=== PATIENT | female | born 1995 ===

== ENCOUNTER → 2023-04-18 | Outpatient (CLI) | payer MEDICAID ==
[2023-04-18 11:47] LABS: Basophils # (auto) 0 10 ^3/uL (0-0.2); Basophils % (auto) 0.2 % (0.0-2.0); Eosinophils # (auto) 0 10 ^3/uL (0-0.8); Eosinophils % (auto) 0.5 % (0.0-7.0); Hematocrit 39.5 % (36.0-46.0); Hemoglobin 12.9 g/dL (12.2-16.2); Lymphocytes # (auto) 1.3 10 ^3/uL (0.4-5.4); Lymphocytes % (auto) 15.7 % (10.0-50.0); Mean Corpuscular Hemoglobin 29.9 pg (28.0-32.0); Mean Corpuscular Hgb Conc. 32.7 g/dL (32.0-36.0); Mean Corpuscular Volume 91.4 fL (80.0-100.0); Monocytes # (auto) 0.5 10 ^3/uL (0-1.3); Monocytes % (auto) 6.2 % (0.0-12.0); Neutrophils # (auto) 6.5 10 ^3/uL (1.6-8.6); Neutrophils % (auto) 77.4 % (37.0-80.0); Red Blood Cells 4.32 10^6/uL (4.0-5.20); Red Cell Distribution Width 14.4 % (11.8-14.3); White Blood Cell 8.4 10^3/uL (4.4-10.8)
[2023-04-18 12:37] LABS: Alanine Aminotransferase 21 U/L (7-40); Alkaline Phosphatase 117 U/L (46-116); Anion Gap 9 (5-15); BUN/Creatinine Ratio 15.4 (10.0-20.0); Blood Urea Nitrogen 8 mg/dL (9-23); Calcium 9.5 mg/dL (8.5-10.1); Carbon Dioxide 24 mmol/L (20-30); Chloride 105 mmol/L (98-107); Glucose 91 mg/dL (74-106); Potassium 3.9 mmol/L (3.5-5.1); Sodium 138 mmol/L (136-145)
[2023-04-18 12:39] LABS: Aspartate Aminotransferase 19 U/L (13-40); Bilirubin, Total 0.3 mg/dL (0.2-1.0); Total Protein 7.1 g/dL (5.7-8.2)
== END | disposition home or self-care (01) ==
LOC: LAB 10:57
PROVIDERS: ATTEND Obstetrics & Gynecology
DX: Z34.80 Encounter for supervision of other normal pregnancy, unspecified trimester (principal); Z3A.00 Weeks of gestation of pregnancy not specified
CPT/HCPCS: 36415; 80053; 85025; 86592

== ENCOUNTER 2023-06-07 14:26 | Inpatient (IN) | payer MEDICAID ==
[~2023-06-07] VITALS: Ht 160 cm; Wt 78.0 kg
[2023-06-07] MEDS ORDERED: LIDOCAINE 2%HCL (LOCAL ANESTH.) INJ 20ML MDV IJ PRN (16:00)
[2023-06-07] MEDS ORDERED: BUTORPHANOL TARTRATE 2 MG/1 ML VIAL IV PRN ×2 (16:00)
[2023-06-07] MEDS: DERMOPLAST 60ML BOTTLE TOP PRN (16:29)
[2023-06-07] MEDS: WITCH HAZEL-GLYCERIN PAD TOP PRN (16:29)
[2023-06-07] MEDS: PHISODERM TOP SOLN 240ML BTL TOP PRN (16:29)
[2023-06-07 16:44] LABS: Basophils # (auto) 0 10 ^3/uL (0-0.2); Basophils % (auto) 0.4 % (0.0-2.0); Eosinophils # (auto) 0.1 10 ^3/uL (0-0.8); Eosinophils % (auto) 0.6 % (0.0-7.0); Hematocrit 40.1 % (36.0-46.0); Hemoglobin 13.4 g/dL (12.2-16.2); Lymphocytes # (auto) 1.8 10 ^3/uL (0.4-5.4); Lymphocytes % (auto) 19.8 % (10.0-50.0); Mean Corpuscular Hemoglobin 30.5 pg (28.0-32.0); Mean Corpuscular Hgb Conc. 33.4 g/dL (32.0-36.0); Mean Corpuscular Volume 91.3 fL (80.0-100.0); Monocytes # (auto) 0.7 10 ^3/uL (0-1.3); Neutrophils # (auto) 6.6 10 ^3/uL (1.6-8.6); Neutrophils % (auto) 71.2 % (37.0-80.0); Nucleated Red Blood Cells % 0.1 %; Red Blood Cells 4.39 10^6/uL (4.0-5.20); Red Cell Distribution Width 15.4 % (11.8-14.3); White Blood Cell 9.3 10^3/uL (4.4-10.8)
[2023-06-07 17:06] LABS: INR 0.9 (0.9-1.15); Partial Thromboplastin Time 25.3 SEC (24.5-34.5); Prothrombin Time 9.5 sec (9.3-11.8)
[2023-06-07 17:08] LABS: Urine Bacteria NONE SEEN /hpf (None Seen); Urine Blood 2+ /uL (Negative); Urine Clarity Clear (Clear); Urine Color Colorless (Yellow); Urine Protein, UAD Negative (Negative); Urine Urobilinogen Normal (Negative); Urine WBC 6 /hpf (0 - 5); Urine pH 5.5 (5.0-8.0)
[2023-06-07 17:11] LABS: Albumin 3.7 g/dL (3.2-4.8); Alkaline Phosphatase 161 U/L (46-116); Anion Gap 6 (5-15); Aspartate Aminotransferase 14 U/L (13-40); BUN/Creatinine Ratio 15.1 (10.0-20.0); Bilirubin, Total 0.3 mg/dL (0.2-1.0); Blood Urea Nitrogen 8 mg/dL (9-23); Carbon Dioxide 23 mmol/L (20-30); Chloride 108 mmol/L (98-107); Glucose 76 mg/dL (74-106); Potassium 4.1 mmol/L (3.5-5.1); Sodium 137 mmol/L (136-145); Total Protein 6.5 g/dL (5.7-8.2)
[2023-06-07 17:19] LABS: Alanine Aminotransferase 9 U/L (7-40)
[2023-06-07 17:30] LABS: Amphetamine Screen, Urine Neg (NEGATIVE); Barbiturate Scree,Urine Neg (NEGATIVE); Benzodiazephine Screen, Urine Neg (NEGATIVE)
[2023-06-07 17:31] LABS: Cannabinoid Screen, Urine Neg (NEGATIVE); Cocaine Screen, Urine Neg (NEGATIVE); Opiate Scree,Urine Neg (NEGATIVE); Phencyclidine Screen, Urine Neg (NEGATIVE)
[2023-06-07] MEDS ORDERED: miSOPROStol 50 MCG per PRE-CUT 1/2 TAB PO PRN (17:45)
[2023-06-07] MEDS: LACTATED RINGER'S 1,000 ML IV SCH (18:00)
[2023-06-07] MEDS ORDERED: LACT. RINGERS/OXYTOCIN 20UNITS 1,000 ML IV SCH (19:00)
[2023-06-07] MEDS ORDERED: TERBUTALINE SULFATE 1 MG/ML 1ML VIAL SC PRN (19:00)
[2023-06-07] MEDS: ceFAZolin 2 GM/D5W50ml 50 ML IV SCH (19:24)
[2023-06-07] MEDS: miSOPROStol 50 MCG per PRE-CUT 1/2 TAB PO PRN (19:25)
[2023-06-07] MEDS ORDERED: LIDOCAINE HCL 2 %PF INJ 10ML AMP IJ ONE (21:45)
[2023-06-07] MEDS ORDERED: LACTATED RINGER'S 500 ML IV ONE ×2 (21:45→23:00)
[2023-06-07] MEDS ORDERED: NALOXONE HCL 0.4 MG/ML VIAL IV ONE ×2 (21:45→23:00)
[2023-06-07] MEDS ORDERED: ROPIVACAINE HCL 200 ML ONE (21:46)
[2023-06-07] MEDS: fentaNYL CITRATE 100 MCG/2 ML VL IV ONE (22:37)
[2023-06-07] MEDS ORDERED: fentaNYL CITRATE 100 MCG/2 ML VL EPI ONE (22:45)
[2023-06-07] MEDS: ePHEDrine SULFATE 50 MG/ML AMP IV ONE (22:51)
[2023-06-07] MEDS ORDERED: fentaNYL 400mCg/200ml W ROPIVA 200 ML EPI SCH (23:00)
[2023-06-07] MEDS ORDERED: ePHEDrine SULFATE 50 MG/ML AMP IV ONE (23:00)
[2023-06-07] MEDS ORDERED: SODIUM CHLORIDE 0.9% 500 ML IV PRN (23:00)
[2023-06-07] MEDS ORDERED: fentaNYL CITRATE 100 MCG/2 ML VL IV ONE (23:00)
[2023-06-08] MEDS: fentaNYL CITRATE 100 MCG/2 ML VL ONE (00:01)
[2023-06-08] MEDS: LACT. RINGERS/OXYTOCIN 20UNITS 500 ML IV ONE ×2 (00:02→02:08)
[2023-06-08] MEDS ORDERED: TRANEXAMIC ACID 1,000 MG in SODIUM CHL 0.9% 100 ML IV ONE (00:35)
[2023-06-08 07:00] VITALS: BP 104/65; PULSE 81; RESP 16; TEMP 98.3; O2SAT 97
[2023-06-08 07:08] LABS: Basophils # (auto) 0.1 10 ^3/uL (0-0.2); Basophils % (auto) 0.5 % (0.0-2.0); Eosinophils # (auto) 0 10 ^3/uL (0-0.8); Eosinophils % (auto) 0.1 % (0.0-7.0); Hematocrit 38.7 % (36.0-46.0); Hemoglobin 12.6 g/dL (12.2-16.2); Lymphocytes # (auto) 2.2 10 ^3/uL (0.4-5.4); Lymphocytes % (auto) 13.8 % (10.0-50.0); Mean Corpuscular Hemoglobin 30.1 pg (28.0-32.0); Mean Corpuscular Hgb Conc. 32.7 g/dL (32.0-36.0); Monocytes % (auto) 6.2 % (0.0-12.0); Neutrophils # (auto) 12.9 10 ^3/uL (1.6-8.6); Neutrophils % (auto) 79.4 % (37.0-80.0); Red Blood Cells 4.21 10^6/uL (4.0-5.20); Red Cell Distribution Width 15.6 % (11.8-14.3); White Blood Cell 16.2 10^3/uL (4.4-10.8)
[2023-06-08] MEDS: IBUPROFEN 600 MG TAB PO PRN (08:30)
[2023-06-08] MEDS ORDERED: PRENATAL VITAMIN TAB PO SCH (10:00)
[2023-06-08 11:00] VITALS: BP 89/55; PULSE 80; RESP 16; TEMP 98.3; O2SAT 98
[2023-06-08] MEDS: ACETAMINOPHEN 325 MG TAB PO PRN (11:43)
[2023-06-08 15:00] VITALS: BP 95/59; PULSE 91; RESP 16; TEMP 98.6; O2SAT 97
[2023-06-08 19:00] VITALS: BP 108/67; PULSE 85; RESP 20; TEMP 98.5; O2SAT 100
[2023-06-08] MEDS ORDERED: PREN-96 PO (21:05)
[2023-06-08] MEDS ORDERED: DOCU-265 PO (21:05)
[2023-06-08] MEDS ORDERED: IBU600T PO (21:05)
[2023-06-08] MEDS: DOCUSATE SOD 100 MG CAP PO SCH (22:52)
[2023-06-08 23:00] VITALS: BP 85/58; PULSE 74; RESP 18; TEMP 98.2; O2SAT 100
[2023-06-08 23:20] VITALS: BP 102/61; PULSE 67; RESP 18
[2023-06-09 03:00] VITALS: BP 102/67; PULSE 66; RESP 16; TEMP 97.9
[2023-06-09 07:00] VITALS: BP 97/55; PULSE 81; RESP 16; TEMP 98.5; O2SAT 99
[2023-06-09] MEDS: PRENATAL VITAMIN TAB PO SCH (08:00)
[2023-06-09 08:06] LABS: RPR Non Reactive (Non Reactive)
[2023-06-09] MEDS ORDERED: TRANEXAMIC ACID 1,000 mg/10ml INJ VIAL IV ONE (16:03)
[2023-06-14 18:06] LABS: Treponema pallidum Ab (FTA-Ab) Non Reactive (Non Reactive)
== END 2023-06-09 11:00 | disposition home or self-care (01) | DRG 560 ==
LOC: UNDOADMOB 14:26 → LDRP 14:26 → UNDOADMOB 14:30 → LDRP 14:30 → INTOOBSV 15:43 → OBSVTOIN 15:43 → LDRP 15:54 → OBSVTOIN 15:54
PROVIDERS: ADMIT Obstetrics & Gynecology; ATTEND Obstetrics & Gynecology
PROC: 10E0XZZ Delivery of Products of Conception, External Approach (ICD-10-PCS; principal; 2023-06-07)
PROC: 0KQM0ZZ Repair Perineum Muscle, Open Approach (ICD-10-PCS; 2023-06-07)
PROC: 3E0R3BZ Introduction of Anesthetic Agent into Spinal Canal, Percutaneous Approach (ICD-10-PCS; 2023-06-07)
PROC: 00HU33Z Insertion of Infusion Device into Spinal Canal, Percutaneous Approach (ICD-10-PCS; 2023-06-07)
DX: O42.12 Full-term premature rupture of membranes, onset of labor more than 24 hours following rupture (principal); Z37.0 Single live birth; O70.1 Second degree perineal laceration during delivery; Z3A.40 40 weeks gestation of pregnancy
CPT/HCPCS: 36415; 59025; 59409; 62282; 76818; 80053; 80307; 81001; 81002; 85025; 85610; 85730; 86592; 86850; 86900; 86901; 94760; 96360; 96361; G0378; J2590